=== PATIENT | male | born 1980 | race Caucasian/White ===

== ENCOUNTER → 2016-11-08 | Outpatient (CLI) | payer OTHER ==
--- NOTE | 2016-11-08 12:33 | DX ---
PA and Lateral Chest X-ray 1148 hours History: Shortness of breath and wheezing. (786.05, 786.07, R 06.02, R 06.2). Findings: Heart size and pulmonary vasculature are normal. The lungs are clear without infiltrates or effusions. There is no pneumothorax. The osseous structures are intact. Impression: Normal chest x-ray.
== END ==
LOC: FIMAGING 11:53
PROVIDERS: ATTEND Physician Assistant
DX: R06.02 Shortness of breath (principal); R06.2 Wheezing